=== PATIENT | female | born 1990 | race Caucasian/White ===

== ENCOUNTER 2021-02-23 15:34 | Outpatient (CLI) | payer OTHER, SELFPAY ==
--- NOTE | ~2021-02-23 | XR_ITS ---
XR scoliosis survey DATE: 02/23/2021 16:11 INDICATION: Scoliosis deformity of spine TECHNIQUE: Standing upright AP and lateral views of the spine. Breast mckeon. COMPARISON: None FINDINGS: 35 degrees levoscoliosis measured from T2 to T7. 34 degrees dextroscoliosis measured from T7 to T10. 16 degrees levoscoliosis measured from T10 to L5. The right femoral head is approximately 2.5 mm higher than the left femoral head. Acute lumbosacral angle. No fracture or dislocation or bone destruction is evident. There is a transitional first sacral vertebra. No significant vertebral anomaly is noted otherwise. IMPRESSION: 35 degrees levoscoliosis measured from T2 to T7. 34 degrees dextroscoliosis measured from T7 to T10. 16 degrees levoscoliosis measured from T10 to L5. The right femoral head is approximately 2.5 mm higher than the left femoral head Acute lumbosacral angle Transitional first sacral vertebra Reviewed, dictated and finalized at [facility]. Reviewed, dictated and finalized at [facility]. IMPRESSION: 35 degrees levoscoliosis measured from T2 to T7. 34 degrees dextroscoliosis measured from T7 to T10. 16 degrees levoscoliosis measured from T10 to L5. The right femoral head is approximately 2.5 mm higher than the left femoral hea d Acute lumbosacral angle Transitional first sacral vertebra
[2021-02-23 16:56] LABS: Hematocrit 35.7 % (37.0-47.0); Hemoglobin 10.4 g/dL (12.0-15.0); Mean Corpuscular HGB Conc 29.1 g/dl (32-36); Mean Corpuscular Hemoglobin 22.2 pg (26-34); Mean Corpuscular Volume 76.1 fl (80-100); Mean Platelet Volume 9.2 fl (7.4-10.4); Platelet Count Result 350 k/mm3 (150-375); Red Blood Count 4.69 M/mm3 (4.2-5.4); Red Cell Distribution Width 14.9 % (11.5-14.5); White Blood Count 6.7 K/mm3 (4.5-10.0)
[2021-02-23 17:11] LABS: Alanine Aminotransferase 18 U/L (4-35); Albumin Level 4.7 g/dL (3.5-5.1); Alkaline Phosphatase 59 U/L (38-126); Anion Gap 10 mmol/L (8-16); Aspartate Amino Transferase 30 U/L (14-36); Bilirubin,Total 0.1 mg/dL (0.2-1.3); Blood Urea Nitrogen 8 mg/dL (7-17); Calcium 9.4 mg/dL (8.4-10.2); Carbon Dioxide 23 mmol/L (22-30); Chloride 102 mmol/L (98-107); Cholesterol 145 mg/dL (0-200); Estimated Glomerular Filt Rate > 60; Glucose 92 mg/dL (65-110); HDL Direct 79 mg/dL; Potassium 3.7 mmol/L (3.4-5.0); Sodium 135 mmol/L (137-145); Triglycerides 75 mg/dL (<150)
[2021-02-23 17:22] LABS: LDL Cholesterol Direct 49 mg/dL
[2021-02-23 17:23] LABS: Add Urine Microscopic? YES; Appearance Urine Clear (Clear); Bilirubin Urine Negative (Negative); Blood Urine Negative (Negative); Color Urine Yellow (Yellow); Glucose Urine UA Negative (Negative); Ketones Urine Negative (Negative); Leukocyte Esterase Ur 2+ LEU/UL (NEGATIVE); Nitrate Urine Negative (Negative); Protein Urine Negative (Negative); Specific Grav Ur 1.015 (1.001-1.035); Urobilinogen Urine 0.2 mg/dL (<2.0); pH Urine 6.5 (5.0-9.0)
[2021-02-23 18:47] LABS: Hemoglobin A1C 5.4 % (<5.7)
== END 2021-02-23 15:35 | disposition home or self-care (01) ==
LOC: ANHIMG 15:41
PROVIDERS: PCP Nurse Practitioner Family; Visit Provider Nurse Practitioner Family
DX: M41.9 Scoliosis, unspecified (principal); Z13.9 Encounter for screening, unspecified; Z13.1 Encounter for screening for diabetes mellitus; Z13.220 Encounter for screening for lipoid disorders; Z13.29 Encounter for screening for other suspected endocrine disorder; Z13.0 Encounter for screening for diseases of the blood and blood-forming organs and certain disorders involving the immune mechanism
CPT/HCPCS: 36415; 72082; 80053; 80061; 81001; 83036; 84443; 85027